=== PATIENT | male | born 1950 | race Caucasian/White ===

== ENCOUNTER → 2022-09-15 11:36 | Outpatient (CLI) | payer MEDICARE, SELFPAY ==
--- NOTE | 2022-09-15 | DI.MRI.S_ITS ---
PROCEDURE: MR KNEE LT WO CON INDICATIONS: Unspecified internal derangement of left knee TECHNIQUE: Noncontrast sagittal PD fast spin echo and T2 fast spin echo with fat saturation, sagittal 3-D FLASH with fat saturation; coronal T1 spin echo and PD fast spin echo with fat saturation, and axial PD fast spin echo with fat saturation through the knee. COMPARISON: [facility] [place], [place], XR KNEE 4+ VIEWS LEFT, 05/13/2022, 13:25. FINDINGS: Image quality: Excellent. Menisci: Complex tear of the posterior horn of the medial meniscus which extends to the superior and inferior articular surfaces. The lateral meniscus demonstrates normal morphology and internal signal. The meniscal root ligaments appear intact. Cruciate ligaments: The anterior and posterior cruciate ligaments appear intact. Anterior cruciate ligament is mildly thickened with increased internal signal which could represent ligament sprain versus mucinous degeneration.. Medial structures: The medial collateral ligament appears intact. The posterior oblique ligament, semimembranosus tendon insertions, oblique popliteal ligament, and meniscocapsular junction appear intact. Visualized portions of the pes anserinus tendons appear normal. No abnormal bursal fluid. Lateral structures: The lateral collateral ligament, long and short heads of the biceps femoris tendon appear intact. The popliteus tendon appears normal; the popliteofibular ligament appears intact. The posterosuperior and anteroinferior popliteomeniscal fascicles appear intact. The arcuate and fabellofibular ligaments appear intact, on either side of the lateral inferior geniculate artery. Iliotibial band appears normal. Anterior structures: The quadriceps and patellar tendons appear intact. Patellar alignment is normal. No femoral trochlear dysplasia or ventral trochlear prominence. No edema in the infrapatellar fat pad. Bones and cartilage: No bone marrow contusions or fractures. Thinning and fissuring of the articular cartilage noted in all three compartments of the knee. Joint space: There is moderate-sized left knee joint effusion. No Roy's cyst. Normal appearing synovial plicae are incidentally noted. IMPRESSION: Complex tear of the posterior horn of the medial meniscus. Tricompartmental articular cartilage degenerative changes. Joint effusion. Anterior cruciate ligament sprain versus mucinous degeneration. Dictated by: Lizet Larose MD, PhD on 09/15/2022 at 14:44 Approved by: Lizet Larose MD, PhD on 09/15/2022 at 17:02
== END ==
PROVIDERS: PCP Nurse Practitioner Family; Referring Provider Orthopaedic Surgery Foot and Ankle Surgery; Visit Provider Orthopaedic Surgery Foot and Ankle Surgery
DX: S83.232A Complex tear of medial meniscus, current injury, left knee, initial encounter (principal); M23.92 Unspecified internal derangement of left knee; M25.462 Effusion, left knee
CPT/HCPCS: 73721